=== PATIENT | female | born 1960 | race Caucasian/White ===

== ENCOUNTER → 2019-07-01 | Outpatient (CLI) | payer BC ==
--- NOTE | 2019-07-02 14:34 | RAD ---
EXAM: CT OF THE CHEST WITHOUT CONTRAST. HISTORY: Pulmonary nodules, smoking history. TECHNIQUE: Computed tomography of the chest was performed without intravenous contrast. COMPARISON: None available. FINDINGS: Images of the upper abdomen reveal tiny hypoattenuating hepatic foci most likely representing cysts. Bone windows reveal no suspicious lesions. There are no pathologically enlarged mediastinal or axillary lymph nodes. There is no pleural or pericardial effusion. The heart is not enlarged. There are mild aortic atherosclerotic calcifications. A noncalcified 3 mm nodule is noted in the right upper lobe on image 37. Another on image 103 measures 4 mm. Another 4 mm nodule is noted in the right middle lobe on image 205. Another in the left costophrenic angle on image 264 measures 4 mm. A few other tiny nodules measure <2 mm and are likely benign. There is mild paraseptal emphysema in the upper lobes. There is mild bronchial wall thickening. IMPRESSION: 1. A few uncalcified nodules measure 4 mm or less. These are most likely benign at this small size. Comparison with prior examinations is recommended to confirm stability. 2. Mild paraseptal emphysema in the upper lobes. Bronchial wall thickening is consistent with acute or chronic bronchitis. *One or more of the following individualized dose reduction techniques were utilized for this examination: 1. Automated exposure control. 2. Adjustment of the mA and/or kV according to patient size. 3. Use of iterative reconstruction technique. Electronically signed by: Anna Vivar MD (07/02/2019 2:31 PM) [facility]
== END | disposition home or self-care (01) ==
LOC: CT 15:26
PROVIDERS: ATTEND Physician Assistant Medical
DX: J43.8 Other emphysema (principal); R91.8 Other nonspecific abnormal finding of lung field
CPT/HCPCS: 71250

== ENCOUNTER → 2019-08-04 | Outpatient (CLI) | payer BC ==
--- NOTE | 2019-08-04 12:18 | RAD ---
EXAM: Dual energy x-ray absorptiometry (DEXA). HISTORY: Postmenopausal female presents for osteoporosis screening. COMPARISON: None. TECHNIQUE: Dual energy x-ray absorptiometry of the lumbar spine and right hip was performed. Calculation of bone mineral density based on standard deviations above or below the expected young adult normal value (T-score) was completed. FINDINGS: The average bone mineral density in the 1st through 4th lumbar vertebrae is 1.393 g/cmxcm, corresponding with a T-score of 1.8. The average total bone mineral density in the right hip is 1.031 g/cmxcm, corresponding with a T-score of 0.6. IMPRESSION: Normal bone mineral density. Note: Definitions established by the World Health Organization: 1. Normal: T-score is -1.0 or above. 2. Osteopenia: T-score is between -1.0 and -2.5 . 3. Osteoporosis: T-score is -2.5 or below. Electronically signed by: Dilcia Snider MD (08/04/2019 12:15 PM) [place] [id number]
--- NOTE | 2019-08-05 17:01 | RAD ---
DATE: 08/04/2019. EXAM: DIGITAL SCREEN BILAT W/CAD. HISTORY: Routine mammographic screening. COMPARISON: 02/25/2013. This study was interpreted with the benefit of Computerized Aided Detection (CAD). FINDINGS: Breast Density: SCATTERED The breast parenchyma shows scattered fibroglandular densities. Breast parenchyma level B.. There is a postbiopsy clip inferomedially on the right. Elsewhere, the parenchymal pattern is stable. A particular a small region of architectural distortion inferiorly on the right is stable chronically and likely benign. A small nodule superolaterally on the left is likely a benign intraparenchymal lymph node but is new. BI-RADS CATEGORY: 0 INCOMPLETE: NEEDS ADDITIONAL IMAGING EVALUATION AND/OR PRIOR MAMMOGRAMS FOR COMPARISON.. RECOMMENDED FOLLOW-UP: ADD ADDITIONAL IMAGING. 1. Sonography of the left upper-outer breast to assess a small new nodule that likely represents an intraparenchymal lymph node. PQRS compliance statement: Patient information was entered into a reminder system with a target due date (now) for the next mammogram. Mammography is a sensitive method for finding small breast cancers, but it does not detect them all and is not a substitute for careful clinical examination. A negative mammogram does not negate a clinically suspicious finding and should not result in delay in biopsying a clinically suspicious abnormality. "Our facility is accredited by the [employer] Mammography Program."
== END | disposition home or self-care (01) ==
LOC: MAMMO 10:44
PROVIDERS: ATTEND Physician Assistant Medical
DX: Z12.31 Encounter for screening mammogram for malignant neoplasm of breast (principal); N63.21 Unspecified lump in the left breast, upper outer quadrant; Z78.0 Asymptomatic menopausal state; Z96.89 Presence of other specified functional implants
CPT/HCPCS: 77067; 77080

== ENCOUNTER → 2019-08-16 | Outpatient (CLI) | payer BC ==
--- NOTE | 2019-08-17 12:15 | RAD ---
Examination: BREAST LEFT History: Abnormal mammogram Comparison/Correlation: 02/25/2013 and 08/04/2019 mammographic exams Findings: Limited left breast ultrasound exam was performed. At the left axilla, there is a benign-appearing lymph node measuring up to 1.8 cm in maximum dimension. At the left upper outer breast 14 cm from the nipple, there is a 0.5 cm x 0.5 cm x 0.5 cm structure which appears to have a fatty hilum is respectively lymph node. No significant flow about this lesion evident. Vascular pedicle appears to present as would be expected of a lymph node. At the 1:30 region 7 cm from the nipple, there is a 0.6 cm diameter hypoechoic structure which appears to have a vascular pedicle as would be expected of a lymph node. Impression: BI-RADS Category 3-probably benign. Six-month follow-up mammography exam and possibly ultrasound of the left breast is recommended to assess stability of small masses which probably represent lymph nodes. Electronically signed by: Lester Saunders MD (08/17/2019 12:13 PM) [facility]
== END | disposition home or self-care (01) ==
LOC: US 12:57
PROVIDERS: ATTEND Physician Assistant Medical
DX: R92.8 Other abnormal and inconclusive findings on diagnostic imaging of breast (principal)
CPT/HCPCS: 76641